=== PATIENT | male | born 1990 | race Caucasian/White ===

== ENCOUNTER 2019-02-27 03:16 | Emergency (ER) | payer BC, OTHER ==
--- NOTE | 2019-02-27 03:39 | EDM.PDOC ---
ED HPI GENERAL MEDICAL PROBLEM - General Chief Complaint: Eye Problems Stated Complaint: Left eye injury Time Seen by Provider: 02/27/19 03:30 Source of Information: Reports: Patient. Denies: Old Records (No [facility] records available) History Limitations: Reports: No Limitations - History of Present Illness INITIAL COMMENTS - FREE TEXT/NARRATIVE: The patient was brought to the emergency room via transport vehicle from [facility] for evaluation of a Workmen's Compensation injury, which occurred at about 00: 30 a.m. this morning. 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 Note the patient was wearing his prescription safety glasses , however was not using his welding shield at that time. He denies any previous injury to that eye and does not know when he had his last tetanus booster. Note that he did use a bottle eyewash with an additional eye stream wash prior to arriving in this facility with no other treatment or medications prior to arrival. No apparent foreign body was noted at that time. Patient has had some mild nonproductive cough, however no recent fever, dyspnea, wheezing, or other significant URI symptoms. Onset: Today, Sudden Onset Date: 02/27/19 Onset Time: 00:30 Duration: Constant Location: Reports: Head (Left eye). Denies: Face, Neck, Chest, Abdomen Quality: Reports: Ache Severity: Moderate Improves with: Reports: None Worsens with: Reports: None Context: Reports: Trauma (As above) Associated Symptoms: Reports: Cough. Denies: Confusion, Chest Pain, cough w sputum, Diaphoresis, Fever/Chills, Headaches, Nausea/Vomiting, Shortness of Breath, Syncope Treatments CORPORATE PARALEGAL: Reports: Other (see below) Other Treatments CORPORATE PARALEGAL: Eye rinse and eye wash station as above Left Eye Pain Score (Numeric/FACES): 5 - Related Data Allergies Allergy/AdvReac Type Severity Reaction Status Date / Time No Known Allergies Allergy Verified 02/27/19 03:19 Home Meds: Home Meds Polymyxin B Sulf/Trimethoprim [Polytrim Eye Drops] 2 drop EARLF QID #1 bottle [Rx] Past Medical History HEENT History: Reports: Impaired Vision, Other (See Below). Denies: Allergic Rhinitis Other HEENT History: Patient wears glasses. Cardiovascular History: Reports: None. Denies: Arrhythmia, High Cholesterol, Hypertension Respiratory History: Reports: None. Denies: Asthma, COPD Gastrointestinal History: Reports: None Genitourinary History: Reports: None Musculoskeletal History: Reports: None. Denies: Arthritis, Fracture Neurological History: Reports: None. Denies: Concussion, Head Trauma Psychiatric History: Reports: None Endocrine/Metabolic History: Reports: Obesity/BMI 30+ Hematologic History: Reports: None - Past Surgical History Head Surgeries/Procedures: Reports: None HEENT Surgical History: Reports: None. Denies: Adenoidectomy, Myringotomy w Tube(s), Tonsillectomy Cardiovascular Surgical History: Reports: None Respiratory Surgical History: Reports: None GI Surgical History: Reports: None. Denies: Hernia, Abdominal, Hernia, Inguinal , Hernia Repair/Other Male Surgical History: Reports: None. Denies: Circumcision, Vasectomy Endocrine Surgical History: Reports: None Neurological Surgical History: Reports: None Musculoskeletal Surgical History: Reports: None Oncologic Surgical History: Reports: None Dermatological Surgical History: Reports: None Social & Family History - Tobacco Use Smoking Status *Q: Never Smoker Tobacco Use Within Last Twelve Months: No Used Tobacco, but Quit: No Smoking Cessation Information Provided To Patient: No Second Hand Smoke Exposure: No Second Hand Smoke Education Provided: No - Living Situation & Occupation Living situation: Reports: , with Family ( and 2 children, including one stepson) Occupation: Employed ([employer]) ED ROS GENERAL - Review of Systems Review Of Systems: ROS reveals no pertinent complaints other than HPI. ED EXAM GENERAL W FULL EYE - Physical Exam Exam: See Below Exam Limited By: No Limitations General Appearance: Alert, WD/WN, No Apparent Distress Eye Exam: Left Eye: Conjunctival Injection (Mild to moderate), Corneal Abrasion (1 cm horizontal X 1 mm in width inferior lateral region), Foreign Body (None noted), Vision Changes (20/30 in left eye was 20/20 in his right eye both while wearing glasses), Other (Mild purulent drainage), Bilateral Eye: EOMI, Normal Fundi (No nystagmus), PERRL Visual Acuity (R) 20/: 20 Visual Acuity (L) 20/: 30 With Correction: Yes Eyelids: Bilateral: Normal Appearance Conjunctiva & Sclera: Left: Injected Cornea Exam: Left: Corneal Abrasion (As above), Examined with Flourescein Extraocular Movements: Bilateral: Intact Pupils: Normal Accommodation Pupillary Size: Bilateral: 6 mm Pupillary Reaction: Bilateral: Brisk Anterior Chamber: Bilateral: Normal Appearance Posterior Chamber: Bilateral: Normal Funduscopic Ears: Normal External Exam, Normal Canal, Hearing Grossly Normal, Normal TMs Nose: Normal Inspection, Normal Mucosa, No Blood Throat/Mouth: Normal Inspection, Normal Lips, Normal Teeth, Normal Gums, Normal Oropharynx, Normal Voice, No Airway Compromise Head: Atraumatic, Normocephalic. No: Facial Swelling, Facial Tenderness, Sinus Tenderness Neck: Normal Inspection, Supple, Non-Tender, Full Range of Motion. No: Lymphadenopathy (L), Lymphadenopathy (R), Thyromegaly Respiratory/Chest: No Respiratory Distress, Lungs Clear, Normal Breath Sounds, No Accessory Muscle Use, Chest Non-Tender. No: Pleural Rub, Retractions Cardiovascular: Normal Peripheral Pulses, Regular Rate, Rhythm, No Edema, No Gallop, No JVD, No Murmur, No Rub. No: Gallop/S3, Gallop/S4, Friction Rub GI/Abdominal: Normal Bowel Sounds, Soft, Non-Tender, No Organomegaly, No Distention, No Abnormal Bruit, No Mass, Pelvis Stable, Other (Obese). No: Guarding (Male) Exam: Deferred Rectal (Males) Exam: Deferred Back Exam: Normal Inspection, Full Range of Motion. No: CVA Tenderness (L), CVA Tenderness (R), Muscle Spasm Extremities: Normal Inspection, Normal Range of Motion, Non-Tender, Normal Capillary Refill, No Pedal Edema Neurological: Alert, Oriented, CN II-XII Intact, Normal Cognition, Normal Gait, No Motor/Sensory Deficits Psychiatric: Normal Affect, Normal Mood Skin Exam: Warm, Dry, Intact, Normal Color, No Rash. No: Diaphoretic, Wound/ Incision Lymphatic: No Adenopathy ED EYE w/ Add Procedure - Eye Procedure Alcaine Drops Administered: Yes Eye Irrigated w/ Saline (ccs): 30 Antibiotic Oinment/Drps Admin: Left Eye Progress: 2 drops of Polytrim ophthalmic solution-ER prescription applied prior to discharge Course - Vital Signs Last Recorded V/S: Last Vital Signs Temp 36.9 C 02/27/19 03:27 Pulse 84 02/27/19 03:27 Resp 16 02/27/19 03:27 BP 139/88 04/16/19 03:27 Pulse Ox 97 02/27/19 03:27 Vital Signs - 24 hr 02/27/19 03:27 Temperature [ 36.9 C Temporal] Pulse, 84 Peripheral [ Pulse Oximetry] Respiratory 16 Rate Blood Pressure 139/88 [Left Upper Arm ] O2 Sat by Pulse 97 Oximetry - Orders/Labs/Meds Orders: Active Orders 24 hr Category Date Time Status Vaccines to be Administered [RC] PER UNIT ROUTINE Care 02/27/19 03:42 Ordered Obtain Past Medical Record [OM.PC] Routine Oth 02/27/19 03:39 Ordered Labs: None Meds: Medications Discontinued Medications Generic Name Dose Route Start Last Admin Trade Name Freq PRN Reason Stop Dose Admin Balanced Salt Solution 30 ml 02/27/19 03:41 02/27/19 03:45 Eye Stream Eye Rinse EYELF 02/27/19 03:42 1 drop ONETIME ONE Administration Diphtheria/Tetanus/Acell Pertussis 0.5 ml 02/27/19 03:42 Adacel IM 02/27/19 03:43 .ONCE ONE Tetracaine HCl 1 ml 02/27/19 03:40 02/27/19 03:45 Tetracaine 0.5% Steri-Unit Dalila EYELF 02/27/19 03:41 1 drop ASDIRECTED ONE Administration Polytrim-ER prescription applied in the ER as above - Radiology Interpretation Free Text/Narrative:: None Departure - Departure Time of Disposition: 04:25 Disposition: Home, Self-Care 01 Condition: Good Clinical Impression: Corneal abrasion Qualifiers: Encounter type: initial encounter Laterality: left Qualified Code(s): S05.02XA - Injury of conjunctiva and corneal abrasion without foreign body, left eye, initial encounter - Discharge Information *PRESCRIPTION DRUG MONITORING PROGRAM REVIEWED*: Not Applicable *COPY OF PRESCRIPTION DRUG MONITORING REPORT IN PATIENT ASTRID: Not Applicable Prescriptions: Polymyxin B Sulf/Trimethoprim [Polytrim Eye Drops] 2 drop EARLF QID #1 bottle Instructions: Corneal Abrasion, [id number], Polymyxin B; Trimethoprim eye drops, solution Referrals: PCP,None [Primary Care Provider] - Forms: ED Department Discharge Additional Instructions: 1. Follow up with your regular provider in 2-3 days as needed, if symptoms persist. Bring these discharge instructions with you to that visit.. 2. Tylenol 650 mg by mouth every 4 hours and/or OTC ibuprofen 2-3 tabs by mouth every 6 hours with food as directed./needed. You may stagger these medications for 48-72 hours only, which essentially means that you are receiving a pain medication about every 2 hours. 3. Work excuse- See Form 4. Wear safety glasses and experimental welder shield at all times when performing work duties 5. Polytrim eyedrops 2 drops in the affected eye 4 times a day with every 2 hours as needed for at least 5 days AND until 48 hours after complete resolution of symptoms as directed. You may use additional OTC artificial tears as needed as per label instructions. 6. Immediately after this visit verify that your cellular telephone's voicemail has been activated and is empty. Also verify that your home telephone 's answering machine is operating properly and has space to receive messages. Note that it is sometimes necessary for us to be able to contact you at a later date to discuss your medical care. 7. Please remember that we are ALWAYS here for you and want to answer any questions you may have. Feel free to call the hospital any time and we call you back MAREK. - Problem List & Annotations (1) Corneal abrasion SNOMED Code(s): 39569187 Code(s): S05.00XA - INJ CONJUNCTIVA AND CORNEAL ABRASION W/O FB, UNSP EYE, INIT Status: Acute Priority: High Current Visit: Yes Onset Date: Annotation/Comment:: Work excuse and Workmen's Compensation forms were completed. Patient was encouraged to wear safety glasses and experimental welder shield at all times and appropriate. DTaP given. Close follow-up by regular provider or process specialist as needed depending on his clinical course Qualifiers: Encounter type: initial encounter Laterality: left Qualified Code(s): S05.02XA - Injury of conjunctiva and corneal abrasion without foreign body, left eye, initial encounter - Problem List Review Problem List Initiated/Reviewed/Updated: Yes - My Orders Last 24 Hours: My Active Orders 02/27/19 03:39 Obtain Past Medical Record [OM.PC] Routine 02/27/19 03:42 Vaccines to be Administered [RC] PER UNIT ROUTINE - Assessment/Plan Last 24 Hours: My Active Orders 02/27/19 03:39 Obtain Past Medical Record [OM.PC] Routine 02/27/19 03:42 Vaccines to be Administered [RC] PER UNIT ROUTINE Assessment:: As above Plan: As above. Extensive precautions were given to the patient, who is in agreement with the treatment plan. See Patient Instructions for further treatment and plan.
[2019-02-27] MEDS ORDERED: Tetracaine HCl/PF 0.5% 4 ML Bottle EYELF ONE (03:40)
[2019-02-27] MEDS ORDERED: Balanced Salt Solution Ophth Irrig 30 ML Bottle EYELF ONE (03:41)
[2019-02-27] MEDS ORDERED: Diphtheria,Pertussis(Acell),Tetanus Vaccine 0.5 ML SDV IM ONE (03:42)
== END 2019-02-27 04:25 | disposition home or self-care (01) ==
LOC: LL.ED 03:16
DX: S05.02XA Injury of conjunctiva and corneal abrasion without foreign body, left eye, initial encounter (principal); Z23 Encounter for immunization; J44.9 Chronic obstructive pulmonary disease, unspecified; W89.0XXA Exposure to welding light (arc), initial encounter; Y99.0 Civilian activity done for income or pay
CPT/HCPCS: 90471; 90715; 99283

== ENCOUNTER 2022-05-03 20:08 | Emergency (ER) | payer BC ==
[2022-05-03] MEDS ORDERED: Celecoxib 100 MG Cap PO ONE (20:30)
== END 2022-05-03 21:15 | disposition home or self-care (01) ==
LOC: LL.ED 20:08
DX: M25.561 Pain in right knee (principal); M25.461 Effusion, right knee; E66.9 Obesity, unspecified; Z68.30 Body mass index [BMI] 30.0-30.9, adult
CPT/HCPCS: 73562-RT; 99283; A9270-GY

== ENCOUNTER 2022-05-04 11:33 | Inpatient (IN) | payer BC ==
[2022-05-04] MEDS ORDERED: Morphine 2 MG/ML SYRINGE IVPUSH PRN (12:00)
[2022-05-04] MEDS ORDERED: Acetaminophen 325 MG Tab PO PRN (12:00)
[2022-05-04] MEDS ORDERED: ceFAZolin 2 GM in Premix Bag 1 BAG IV SCH (12:00)
[2022-05-04] MEDS: cefTRIAXone 2 GM in Sodium Chloride 0.9% 100 ML IV SCH (13:50)
[2022-05-04] MEDS: Sodium Chloride 0.9% 10 ML Syringe FLUSH PRN (13:52)
[2022-05-04 14:09] LABS: ANION GAP 13.5 meq/L (7-15)
[2022-05-04] MEDS: Acetaminophen/HYDROcodone 325-10 MG Tab PO PRN (20:31)
[2022-05-05] MEDS: Acetaminophen/HYDROcodone 325-10 MG Tab PO PRN ×4 (01:46→19:53)
[2022-05-05] MEDS: cefTRIAXone 2 GM in Sodium Chloride 0.9% 100 ML IV SCH (13:03)
[2022-05-05] MEDS: Sodium Chloride 0.9% 10 ML Syringe FLUSH PRN (13:04)
[2022-05-05] MEDS: Ketorolac 30 MG/ML SDV IVPUSH SCH ×2 (14:53→22:16)
[2022-05-06] MEDS: Acetaminophen/HYDROcodone 325-10 MG Tab PO PRN (07:47)
[2022-05-06] MEDS ORDERED: Docusate Sodium 100 MG Cap PO SCH (08:00)
[2022-05-06] MEDS: Ketorolac 30 MG/ML SDV IVPUSH SCH (10:10)
[2022-05-06] MEDS ORDERED: Polyethylene Glycol 3350 Powder 17 GM Packet PO PRN (10:35)
[2022-05-06] MEDS ORDERED: Morphine 2 MG/ML SYRINGE IVPUSH PRN (11:00)
[2022-05-06] MEDS ORDERED: oxyCODONE 5 MG Tab PO PRN (11:00)
[2022-05-06 11:13] LABS: ANION GAP 11.7 meq/L (7-15)
[2022-05-06] MEDS: cefTRIAXone 2 GM in Sodium Chloride 0.9% 100 ML IV SCH (13:20)
[2022-05-06] MEDS: Topiramate 25 MG Tab PO SCH (17:37)
[2022-05-06] MEDS: Ibuprofen 600 MG Tab PO PRN (17:38)
[2022-05-07] MEDS: Ibuprofen 600 MG Tab PO PRN (02:51)
[2022-05-07] MEDS: Topiramate 25 MG Tab PO SCH ×2 (07:47→17:07)
[2022-05-07] MEDS ORDERED: Calcium Carbonate 500 MG Tab.Chew PO ONE (12:16)
[2022-05-07] MEDS: Sodium Chloride 0.9% 10 ML Syringe FLUSH PRN (12:27)
[2022-05-07] MEDS: cefTRIAXone 2 GM in Sodium Chloride 0.9% 100 ML IV SCH (12:27)
[2022-05-07] MEDS ORDERED: GI Cocktail Oral Solution 30 ML PO ONE (13:59)
[2022-05-08] MEDS: Topiramate 25 MG Tab PO SCH (09:11)
[2022-05-08] MEDS ORDERED: cefTRIAXone 2 GM in Sodium Chloride 0.9% 100 ML IV SCH (10:00)
[2022-05-08] MEDS: Sodium Chloride 0.9% 10 ML Syringe FLUSH PRN (10:03)
== END 2022-05-08 10:45 | disposition home or self-care (01) | DRG 344 ==
LOC: LL.MS 11:33
PROVIDERS: ADMIT Physician Assistant; ATTEND Physician Assistant
PROC: 0S9C3ZX Drainage of Right Knee Joint, Percutaneous Approach, Diagnostic (ICD-10-PCS; principal; 2022-05-08)
DX: M00.861 Arthritis due to other bacteria, right knee (principal); K21.9 Gastro-esophageal reflux disease without esophagitis; E66.01 Morbid (severe) obesity due to excess calories; Z68.41 Body mass index [BMI] 40.0-44.9, adult; Z97.3 Presence of spectacles and contact lenses
CPT/HCPCS: 36415; 80048; 80053; 85027; 86140; 87040; A9270-GY; J0696; J1885; J3490

== ENCOUNTER 2022-05-26 22:01 | Emergency (ER) | payer BC ==
[2022-05-26] MEDS: oxyCODONE 5 MG Tab PO PRN (22:40)
[2022-05-26 22:41] LABS: ANION GAP 10.9 meq/L (7-15); CHLORIDE,CL 103 mmol/L (98-107); ESTIMATED GFR 95 mL/min (>=60); SODIUM,NA 139 mmol/L (136-145)
[2022-05-26] MEDS: Acetaminophen 325 MG Tab PO PRN (22:41)
[2022-05-26] MEDS: Iopamidol 612 MG/ML 100 ML Bottle IVPUSH ONE (23:41)
[2022-05-27] MEDS: oxyCODONE 5 MG Tab PO ONE (00:29)
== END 2022-05-27 01:00 ==
LOC: LL.ED 22:01
DX: M25.561 Pain in right knee (principal); M79.89 Other specified soft tissue disorders; E66.9 Obesity, unspecified; Z68.30 Body mass index [BMI] 30.0-30.9, adult; Z79.899 Other long term (current) drug therapy
CPT/HCPCS: 36415; 73701-RT; 80053; 83605; 85025; 99284; A9270-GY; Q9967

== ENCOUNTER 2023-08-17 21:42 | Emergency (ER) | payer BC ==
[2023-08-17 22:08] LABS: BASOPHILS ABSOLUTE AUTO 0.02 K/uL (0.00-0.20); BASOPHILS PERCENT AUTO 0.2 % (0.0-2.0); EOSINOPHILS ABSOLUTE AUTO 0.19 K/uL (0.00-0.50); EOSINOPHILS PERCENT AUTO 1.8 % (0.0-5.0); HEMOGLOBIN 13.9 g/dL (13.1-16.8); LYMPHOCYTES ABSOLUTE AUTO 1.34 K/uL (0.50-3.50); MEAN CORPUSCULAR HEMOGLOBIN 26.9 pg (28.2-33.3); MEAN CORPUSCULAR HGB CONC 33.1 g/dL (31.7-36.0); MEAN CORPUSCULAR VOLUME 81.4 fL (84.0-98.0); MONOCYTES PERCENT AUTO 9.7 % (2.0-14.0); NEUTROPHILS ABSOLUTE AUTO 7.77 K/uL (1.40-7.00); NEUTROPHILS PERCENT AUTO 75.3 % (45.0-80.0); PLATELET COUNT,PLT 185 K/uL (150-350); RED BLOOD CELL COUNT 5.16 M/uL (4.33-5.41); RED CELL DISTRIBUTION WIDTH 14.5 % (11.2-14.1); WHITE BLOOD CELL COUNT,WBC 10.3 K/uL (4.0-10.2)
[2023-08-17 22:22] LABS: ALBUMIN 3.6 g/dL (3.4-5.0); ANION GAP 10.2 meq/L (7-15); BILIRUBIN TOTAL 0.5 mg/dL (0.2-1.0); CALCIUM 8.3 mg/dL (8.5-10.1); CARBON DIOXIDE,CO2 26.8 mmol/L (21.0-32.0); CREATININE 0.96 mg/dL (0.51-1.17); EST CRCL DRUG DOSING (CG) 119.84 mL/min; MAGNESIUM 1.9 mg/dL (1.8-2.4); POTASSIUM,K 3.9 mmol/L (3.5-5.1); PROTEIN TOTAL,TP 7.3 g/dL (6.4-8.2)
== END 2023-08-17 23:03 | disposition home or self-care (01) ==
LOC: LL.ED 21:42
DX: I10 Essential (primary) hypertension (principal); M10.9 Gout, unspecified; E66.9 Obesity, unspecified; Z68.41 Body mass index [BMI] 40.0-44.9, adult; Z79.82 Long term (current) use of aspirin
CPT/HCPCS: 36415; 80053; 83735; 85025; 99283; 99284

== ENCOUNTER 2023-09-26 17:02 | Emergency (ER) | payer BC ==
[2023-09-26 17:40] LABS: BASOPHILS ABSOLUTE AUTO 0.03 K/uL (0.00-0.20); BASOPHILS PERCENT AUTO 0.3 % (0.0-2.0); EOSINOPHILS ABSOLUTE AUTO 0.16 K/uL (0.00-0.50); EOSINOPHILS PERCENT AUTO 1.4 % (0.0-5.0); HEMATOCRIT 45.7 % (39.0-49.0); HEMOGLOBIN 15.2 g/dL (13.1-16.8); LYMPHOCYTES PERCENT AUTO 18.8 % (10.0-50.0); MEAN CORPUSCULAR HGB CONC 33.3 g/dL (31.7-36.0); MEAN CORPUSCULAR VOLUME 81.3 fL (84.0-98.0); MONOCYTES ABSOLUTE AUTO 1.26 K/uL (0.00-1.00); MONOCYTES PERCENT AUTO 11.3 % (2.0-14.0); NEUTROPHILS ABSOLUTE AUTO 7.63 K/uL (1.40-7.00); NEUTROPHILS PERCENT AUTO 68.2 % (45.0-80.0); PLATELET COUNT,PLT 193 K/uL (150-350); RED BLOOD CELL COUNT 5.62 M/uL (4.33-5.41); RED CELL DISTRIBUTION WIDTH 14.7 % (11.2-14.1); WHITE BLOOD CELL COUNT,WBC 11.2 K/uL (4.0-10.2)
[2023-09-26 17:53] LABS: ALBUMIN 3.6 g/dL (3.4-5.0); BILIRUBIN TOTAL 0.9 mg/dL (0.2-1.0); CALCIUM 8.6 mg/dL (8.5-10.1); CREATININE 0.91 mg/dL (0.51-1.17); EST CRCL DRUG DOSING (CG) 126.42 mL/min; POTASSIUM,K 3.8 mmol/L (3.5-5.1); PROTEIN TOTAL,TP 8.1 g/dL (6.4-8.2); URIC ACID 7.5 mg/dL (2.6-7.2)
[2023-09-26] MEDS ORDERED: Naproxen 250 MG Tab PO ONE (18:41)
[2023-09-26] MEDS ORDERED: predniSONE 20 MG Tab PO ONE (18:41)
== END 2023-09-26 19:11 | disposition home or self-care (01) ==
LOC: LL.ED 17:02
DX: M10.071 Idiopathic gout, right ankle and foot (principal); I10 Essential (primary) hypertension; E66.9 Obesity, unspecified; Z68.41 Body mass index [BMI] 40.0-44.9, adult; Z79.899 Other long term (current) drug therapy
CPT/HCPCS: 36415; 80053; 84550; 85025; 99283; A9270-GY; J7512

== ENCOUNTER 2024-06-07 22:30 | Emergency (ER) | payer BC ==
[2024-06-07] MEDS: Sodium Chloride 0.9% 10 ML Syringe FLUSH PRN (23:04)
[2024-06-07] MEDS: Ketorolac 15 MG/ML SDV IVPUSH PRN (23:04)
[2024-06-07] MEDS: predniSONE 20 MG Tab PO ONE (23:54)
== END 2024-06-08 00:15 | disposition home or self-care (01) ==
LOC: LL.ED 22:30
DX: M10.071 Idiopathic gout, right ankle and foot (principal); I10 Essential (primary) hypertension; E66.9 Obesity, unspecified; Z79.899 Other long term (current) drug therapy
CPT/HCPCS: 36415; 84550; 96374; 99283; 99283-25; J1885; J3490; J7512

== ENCOUNTER 2025-07-15 07:04 | Emergency (ER) | payer OTHER ==
[2025-07-15] MEDS: Ketorolac 30 MG/ML SDV IM ONE (07:56)
[2025-07-15] MEDS: Dexamethasone 10 MG/ML SDV IM ONE (09:26)
[2025-07-15] MEDS: Take Home: Ketorolac 10 MG Tab, 4 Tab Pack PO ONE (09:26)
== END 2025-07-15 09:32 | disposition home or self-care (01) ==
LOC: SUPCPDRO 07:04 → LL.ED 07:04
DX: M10.071 Idiopathic gout, right ankle and foot (principal); M25.562 Pain in left knee; I10 Essential (primary) hypertension; Z79.899 Other long term (current) drug therapy
CPT/HCPCS: 36415; 73562; 84550; 86140; 96372; 99283; A9270; J1100; J1885